=== PATIENT | male | born 1985 | race Caucasian/White ===

== ENCOUNTER 2024-12-02 21:10 | Emergency (ER) | payer MEDICARE, MEDICAID, SELFPAY ==
[2024-12-02 21:24] VITALS: BP 141/86; PULSE 62; RESP 18; TEMP 36.4; O2SAT 100; BMI 33.0
--- NOTE | 2024-12-02 21:44 | XRR_ITS ---
PROCEDURE INFORMATION: Exam: XR Chest Exam date and time: 12/02/2024 9:45 PM Age: 38 years old Clinical indication: Chest wall pain; Additional info: Hypoxia, chest pain TECHNIQUE: Imaging protocol: Radiologic exam of the chest. Views: 1 view. COMPARISON: No relevant prior studies available. FINDINGS: Lungs: Unremarkable. No consolidation. Pleural spaces: Unremarkable. No pleural effusion. No pneumothorax. Heart/Mediastinum: Unremarkable. No cardiomegaly. Bones/joints: Unremarkable. XR/XR chest 1V portable [id number] IMPRESSION: No acute cardiopulmonary process.
--- NOTE | 2024-12-02 21:44 | ECG_ITS ---
[employer] Test Date: 2024-12-02 Pat Name: Rahul Rodriguez Department: Room: Gender: Male Ortho Tech: : 1985 Requested By: Kevin Desai Order Number: [id number] Loren MD: Lenny Mora M.D. Measurements Intervals [place] Rate: 52 P: 11 FL: 140 QRS: 75 QRSD: 121 T: 45 QT: 436 QTc: 406 Interpretive Statements SINUS BRADYCARDIA MODERATE INTRAVENTRICULAR CONDUCTION DELAY [110+ ms QRS DURATION] ST ELEVATION, PROBABLY EARLY REPOLARIZATION [ST ELEVATION WITH NORMALLY INFLECTED T-WAVE] No previous ECG available for comparison Electronically Signed On 12-03-2024 17:51:09 FILTER CLEANER by Lenny Mora M.D. [email or web address]
--- NOTE | 2024-12-02 21:46 | CTR_ITS ---
PROCEDURE INFORMATION: Exam: CT Abdomen And Pelvis Without Contrast Exam date and time: 12/02/2024 9:56 PM Age: 38 years old Clinical indication: Abdominal pain; Flank; Right; Additional info: Right flank pain TECHNIQUE: Imaging protocol: Computed tomography of the abdomen and pelvis without contrast. Radiation optimization: All CT scans at this facility use at least one of these dose optimization techniques: automated exposure control; mA and/or kV adjustment per patient size (includes targeted exams where dose is matched to clinical indication); or iterative reconstruction. COMPARISON: CR (CHEST, ) 12/02/2024 9:45 PM RADIATION DOSE METRICS: Total DLP (mGy-cm): 1002.95 FINDINGS: Lungs: There is right lower lobe atelectasis. Liver: Normal. No mass. Gallbladder and biliary ducts: Normal. No calcified stones. No ductal dilation. Pancreas: Normal. No ductal dilation. Spleen: Normal. No splenomegaly. Adrenal glands: Normal. No mass. Kidneys and ureters: There is a 3 mm obstructing stone in the distal right ureter at the ureterovesicular junction with mild right hydroureteronephrosis. No left hydronephrosis. Stomach and bowel: Unremarkable. No obstruction. No mucosal thickening. Appendix: No evidence of appendicitis. Intraperitoneal space: Unremarkable. No free air. No significant fluid collection. Vasculature: Calcified atheromas of the visualized arteries. There are numerous benign phleboliths in the pelvis. Lymph nodes: Unremarkable. No enlarged lymph nodes. Urinary bladder: Unremarkable as visualized. Reproductive: Unremarkable as visualized. Bones/joints: The lumbar spine demonstrates moderate degenerative changes at multiple levels. Soft tissues: Unremarkable. CT/CT kidney stone [id number] IMPRESSION: Obstructing 3 mm stone in the distal right ureter with mild right hydroureteronephrosis.
[2024-12-02] MEDS: ondansetron 2 mg/ML SDV 2 mL 4 MG IVP (21:47)
[2024-12-02 21:59] LABS: Basophils # 0.1 10^3/uL (0.0-0.1); Basophils % 0.8 %; Eosinophils # 0.2 10^3/uL (0.0-0.8); Eosinophils % 1.4 %; Hematocrit 45.7 % (37-53); Lymphocytes # 4.5 10^3/uL (0.8-4.8); Lymphocytes % 29.8 %; Mean Corpuscular HGB Conc 33.7 g/dL (30-55); Mean Corpuscular Hemoglobin 27.8 pg (27-33); Mean Corpuscular Volume 82.5 fl (82-101); Mean Platelet Volume 10.8 fL (7.4-10.4); Monocytes # 1.2 10^3/uL (0.2-0.9); Monocytes % 7.7 %; Neutrophils # 9.13 10^3/uL (1.8-7.7); Neutrophils % 60.1 %; Nucleated Red Blood Cells % 0 %; Platelet Count 345 10^3/cmm (157-399); Red Blood Count 5.54 10^6/uL (3.85-5.65); Red Cell Distribution Width 12.8 % (12.1-15.1); White Blood Count 15.19 10^3/uL (3.29-11.43)
[2024-12-02 22:05] LABS: Alanine Aminotransferase 26 U/L (0-41); Albumin Level 4.6 g/dL (3.5-5.2); Alkaline Phosphatase 106 U/L (40-130); Anion Gap 22.1 (5-19); Aspartate Amino Transferase 23 U/L (0-40); Blood Urea Nitrogen 11 mg/dL (6-20); Calcium 9.4 mg/dL (8.5-10.5); Carbon Dioxide 22 mmol/L (22-29); Chloride 100 mmol/L (98-107); Creatinine Clr Calc Pharmacy 146.8599; Globulin 2.8 g/dL (1.3-4.6); Glomerular Filtration Rate 94.4 mL/min (90-130); Glucose 149 mg/dL (65-115); Lipase 26 U/L (13-60); Osmolality Calculated 294 mOsm/kg (285-295); Potassium 3.1 mmol/L (3.5-5.1); Sodium 141 mmol/L (136-145); Total Bilirubin 0.5 mg/dL (0.15-1.2); Total Protein 7.4 g/dL (6.6-8.7)
[2024-12-02 22:07] LABS: Troponin(5th) Baseline < 6 ng/L (0-15)
[2024-12-02] MEDS: ketorolac 30 mg/mL INJ IVP (22:12)
--- NOTE | 2024-12-02 22:14 | ED_ITS ---
HPI - Abdominal Pain 2 General: Chief Complaint: Abdominal Pain Stated Complaint: Lower R Ab Pain O2 low 88 Time Seen by Provider: 12/02/24 21:44 History of Present Illness: Patient presents to the ER with complaints of right-sided flank pain that started about an hour ago. Patient is also had some intermittent chest pain and nausea. Patient's pain is sharp and stabbing in nature patient is never had any pain like this before. No history of kidney stones or CAD. Patient denies any shortness of breath diaphoresis positive for nausea secondary to pain. Related Data Previous Rx's ?Medication ?Instructions ?Recorded ketorolac 10 mg tablet 10 mg PO Q6H PRN Kidney ston e pain 12/02/24 #14 tabs ondansetron HCl 4 mg tablet 4 mg PO Q8H PRN nausea and 12/02/24 vomiting #14 tabs sulfamethoxazole 800 1 tab PO BID #14 tabs mg-trimethoprim 160 mg tablet (Bactrim DS) Allergies Allergy/AdvReac Type Severity Reaction Status Date / Time nickel Allergy ALGY-Rash Verified 12/02/24 21:26 Review of Systems 2 General: Reports: 10 or more systems reviewed and unremarkable except in HPI and below Physical Exam 2 Const: COMMON NORMALS: no acute distress, average body habitus, patient oriented x3, no limitations, healthy appearing, alert and well nourished HENMT: COMMON NORMALS: normocephalic, atraumatic, hearing grossly normal bilaterally, external ears normal, Normal external nose present and moist oral mucous membranes HEAD & SCALP: normocephalic and atraumatic NOSE: Normal external nose present EXTERNAL EAR: Yes external ears normal Neck/C-Spine: COMMON NORMALS: no JVD Chest: COMMONS NORMALS: normal inspection of the chest and normal palpation of entire chest wall Resp: COMMON NORMALS: normal respiratory effort, No retractions, No use of accessory muscles and clear to auscultation bilaterally AUSCULTATION: clear to auscultation bilaterally Cardio: COMMON NORMALS: no JVD, regular rate, regular rhythm, S1 normal heart sound present, S2 normal heart sound present, No gallops present (Cardio), No clicks present (Cardio), No murmurs present (Cardio) and No rub (Cardio) R ATE: regular rate RHYTHM: regular rhythm HEART SOUNDS: S1 normal heart sound present and S2 normal heart sound present GI: COMMON NORMALS: Normal to inspection, nondistended, normoactive bowel sounds present, Soft to palpation, non-tender, No hepatosplenomegaly present and no masses PALPATION: Yes Soft to palpation and Yes No hepatosplenomegaly present Neuro: COMMON NORMALS: patient oriented x3 SENSORIUM/ORIENTATION: Yes alert Course 2 Vital Signs: Vital signs: Vital Signs Temperature 97.6 F 12/02/24 21:24 Pulse Rate 62 12/02/24 21:24 Respiratory Rate 18 12/02/24 21:24 Blood Pressure 141/86 12/02/24 21:24 Pulse Oximetry 100 12/02/24 21:24 Oxygen Delivery Me thod Room Air 12/02/24 21:24 MDM - Abdominal Pain Medical Decision Making CT scan showed obstructing 3 mm distal right ureter with mild right hydronephrosis. Chest x-ray was negative. Lab work showed white count of 15.19, potassium 3.1, otherwise unremarkable. Patient was given 30 mg Toradol and 4 mg Zofran patient's pain is improved. Patient will be discharged home with Toradol and Zofran and Bactrim DS Medical Records I reviewed the patient's medical records. Lab Data I reviewed the patient's lab results. 12/02/24 21:33 12/02/24 21:33 Labs/Radiology: Radiology Impressions Chest X-Ray 12/02/24 21:44 IMPRESSION: No acute cardiopulmonary process. Abdomen/Pelvis CT 12/02/24 21:46 IMPRESSION: Obstructing 3 mm stone in the distal right ureter with mild right hydroureteronephrosis. Laboratory Results WBC 15.19 10^3/uL (3.29-11.43) H 12/02/24 21: RBC 5.54 10^6/uL (3.85-5.65) 12/02/24 21:33 Hgb 15.40 g/dL (11.27-16.99) 12/02/24 21: Hct 45.7 % (37-53) 12/02/24 21:33 MCV 82.5 fl (82-101) 12/02/24 21: MCH 27.8 pg (27-33) 12/02/24 21: MCHC 33.7 g/dL (30-55) 12/02/24 21: RDW 12.8 % (12.1-15.1) 12/02/24 21: Plt Count 345 10^3/cmm (157-399) 12/02/24 21: MPV 10.8 fL (7.4-10.4) H 12/02/24 21: Neut % (Auto) 60.1 % 12/02/24 21: Lymph % (Auto) 29.8 % 12/02/24 21: [place] % (Auto) 7.7 % 12/02/24 21: Eos % (Auto) 1.4 % 12/02/24 21: Baso % (Auto) 0.8 % 12/02/24: Neut # (Auto) 9.13 10^3/uL (1.8-7.7) H 12/02/24 21: Lymph # (Auto) 4.5 10^3/uL (0.8-4.8) 12/02/24 21: [place] # (Auto) 1.2 10^3/uL (0.2-0.9) H 12/02/24 21: Eos # (Auto) 0.2 10^3/uL (0.0-0.8) 12/02/24 21: Baso # (Auto) 0.1 10^3/uL (0.0-0.1) 12/02/24 21: Nucleated RBC % (auto) 0 % 12/02/24 21: Nucleated RBCs # 0.0 /100WBC 12/02/24 21: Sodium 141 mmol/L (136-145) 12/02/24 21: Potassium 3.1 mmol/L (3.5-5.1) L 12/02/24 21: Chloride 100 mmol/L (98-107) 12/02/24 21: Carbon Dioxide 22 mmol/L (22-29) 12/02/24 21: Anion Gap 22.1 (5-19) H 12/02/24 21:33 BUN 11 mg/dL (6-20) 12/02/24 21: Creatinine 0.9 mg/dL (0.7-1.2) 12/02/24 21: GFR Calculation 94.4 mL/min (90-130) 12/02/24 21:33 Glucose 149 mg/dL (65-115) H 12/02/24 21:33 Calculated Osmolality 294 mOsm/kg (285-295) 12/02/24 21:33 Calcium 9.4 mg/dL (8.5-10.5) 12/02/24 21:33 Total Bilirubin 0.5 mg/dL (0.15-1.2) 12/02/24 21:33 AST 23 U/L (0-40) 12/02/24 21:33 ALT 26 U/L (0-41) 12/02/24 21:33 Alkaline Phosphatase 106 U/L (40-130) 12/02/24 21:33 Troponin T Baseline < 6 ng/L (0-15) 12/02/24 21:33 Total Protein 7.4 g/dL (6.6-8.7) 12/02/24 21:33 Albumin 4.6 g/dL (3.5-5.2) 12/02/24 21:33 Globulin 2.8 g/dL (1.3-4.6) 12/02/24 21:33 Lipase 26 U/L (13-60) 12/02/24 21:33 All radiology interpretation(s) finalized by discharge Discharge Plan Discharge Patient Disposition: Home Clinical Impression: Kidney stone on right side Condition: Stable Prescriptions: New ondansetron HCl 4 mg tablet 4 mg PO Q8H PRN (Reason: nausea and vomiting) Qty: 14 0RF sulfamethoxazole-trimethoprim [Bactrim DS] 800-160 mg tablet 1 tab PO BID Qty: 14 0RF ketorolac 10 mg tablet 10 mg PO Q6H PRN (Reason: Kidney stone pain) Qty: 14 0RF Discharge Orders: Discharge ED (Routine); Ordered 12/02/24 Ordered By: Kevin Desai Patient Instructions: Opioid Safety, Pain Management, Kidney Stones Activity Restrictions/Additional Instructions: Please take all your medicine as directed. Please push plenty of fluids. Please follow-up within the practices for the next 7 days for further evaluation treatment. 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
[2024-12-02 22:54] VITALS: BP 131/77; PULSE 54; RESP 16; O2SAT 95
[2024-12-02] MEDS: ondansetron 4 MG Tablet PO (23:07)
[2024-12-02] MEDS: ketorolac 10 mg Tablet 20 MG PO (23:07)
== END 2024-12-02 23:09 | disposition home or self-care (01) ==
PROVIDERS: Emergency Provider Emergency Medicine
DX: N20.0 Calculus of kidney (principal)
CPT/HCPCS: 71045; 74176; 80053; 83690; 84484; 85025; 93005; 96374; 96375; 99285; J1885; J2405; Q0162